=== PATIENT | male | born 1990 | race Caucasian/White ===

== ENCOUNTER 2024-09-02 09:50 | Emergency (ER) | payer OTHER ==
[2024-09-02] MEDS ORDERED: Tetracaine 0.5% PF 4 ML BOT ONE (10:04)
[2024-09-02] MEDS ORDERED: Fluorescein Opthalmic Strip ONE (10:04)
[2024-09-02] MEDS ORDERED: Lidocaine 1% PF 5 ML VIAL ONE (10:20)
[2024-09-02] MEDS ORDERED: Lidocaine 1%/Epinephrine 1:100K 10 ML VIAL ONE (10:30)
== END 2024-09-02 10:55 | disposition home or self-care (01) ==
LOC: BURERS 09:50
DX: S05.42XA Penetrating wound of orbit with or without foreign body, left eye, initial encounter (principal); S05.02XA Injury of conjunctiva and corneal abrasion without foreign body, left eye, initial encounter; X58.XXXA Exposure to other specified factors, initial encounter
CPT/HCPCS: 12013; 99283